=== PATIENT | male | born 1965 | race African-American/Black ===

== ENCOUNTER 2016-11-28 21:48 | Emergency (ER) | payer MEDICAID ==
[~2016-11-28] VITALS: Ht 157.5 cm; Wt 63.0 kg
[2016-11-28] MEDS ORDERED: KETOROLAC 60MG/2ML VIAL IM ONE (23:00)
[2016-11-29 01:49] VITALS: BP 129/85
== END 2016-11-29 01:46 | disposition home or self-care (01) ==
LOC: ER 21:48
DX: S16.1XXA Strain of muscle, fascia and tendon at neck level, initial encounter (principal); S39.012A Strain of muscle, fascia and tendon of lower back, initial encounter; F17.200 Nicotine dependence, unspecified, uncomplicated; V49.59XA Passenger injured in collision with other motor vehicles in traffic accident, initial encounter; Y93.89 Activity, other specified; Y92.89 Other specified places as the place of occurrence of the external cause; Y99.8 Other external cause status
CPT/HCPCS: 71010; 72040; 72100; 72170; 93005; 96372; 99284; J1885

== ENCOUNTER 2023-12-15 05:11 | Emergency (ER) | payer MEDICAID ==
[~2023-12-15] VITALS: Ht 139.7 cm; Wt 36.0 kg
[2023-12-15 05:20] VITALS: TEMP 96.9; O2SAT 97
[2023-12-15] MEDS: SODIUM CHLORIDE 0.9% 1,000 ML IV ONE (06:50)
[2023-12-15] MEDS: KETOROLAC 30MG/ML VIAL IV STA (06:50)
[2023-12-15] MEDS: METOCLOPRAMIDE HCL 10MG/2ML VIAL IV ONE (06:50)
[2023-12-15] MEDS ORDERED: IBUP-2028 PO (07:23)
[2023-12-15 07:47] VITALS: BP 146/82; PULSE 89; RESP 18; O2SAT 95
== END 2023-12-15 07:52 | disposition home or self-care (01) ==
LOC: ER 05:11
DX: R51.9 Headache, unspecified (principal)
CPT/HCPCS: 96361; 96374; 96375; 99284; J1885; J2765; J7030; Z7610

== ENCOUNTER 2024-01-13 09:26 | Emergency (ER) | payer MEDICAID, OTHER ==
[~2024-01-13] VITALS: Ht 139.7 cm; Wt 54.4 kg
[~2024-01-13 09:26] MED LIST: IBUP-2028 PO
[2024-01-13 09:29] VITALS: O2SAT 100
[2024-01-13 10:16] LABS: BASOPHILS % 0.6 % (0.0-2.0); EOSINOPHILS % 2.2 % (0.0-5.0); HEMATOCRIT. 35.4 % (42.0-52.0); HEMOGLOBIN. 12.2 g/dL (14.0-18.0); LYMPHOCYTES % 17.9 % (20.0-50.0); MEAN CORPUSCULAR HEMOGLOBIN 32.9 pg (28.0-32.0); MEAN CORPUSCULAR HGB CONC 34.6 g/dL (31.0-37.0); MEAN CORPUSCULAR VOLUME 95.1 fL (80.0-94.0); MONOCYTES % 9.5 % (2.0-8.0); NEUTROPHILS % 69.8 % (40.0-76.0); PLATELET 727 x1000/uL (130-400); RED BLOOD CELL COUNT 3.72 mill/uL (4.7-6.1); RED CELL DISTRIBUTION WIDTH 12.1 % (11.6-14.6); WHITE BLOOD COUNT 10.6 x1000/uL (4.5-11.0)
[2024-01-13] MEDS: ONDANSETRON HCL 4MG/2ML INJ IV STA (10:24)
[2024-01-13] MEDS: MORPHINE SULFATE 4 MG/ML INJ (FOR IV/IM USE) IV STA (10:24)
[2024-01-13] MEDS: SODIUM CHLORIDE 0.9% 1,000 ML IV ONE (10:24)
[2024-01-13 10:26] LABS: INR 1.1; PROTHROMBIN TIME 12.6 sec (9.6-11.0)
[2024-01-13 10:55] LABS: CHLORIDE 100 mEq/L (98-107); POTASSIUM 3.9 mEq/L (3.5-5.1); SODIUM 134 mEq/L (136-145)
[2024-01-13 10:56] LABS: CARBON DIOXIDE 27 mEq/L (21-32)
[2024-01-13 10:57] LABS: CALCIUM 9.5 mg/dL (8.7-10.4)
[2024-01-13 11:01] LABS: CREATININE 0.7 mg/dL (0.6-1.3); GLUCOSE 75 mg/dL (70-105); UREA NITROGEN BLOOD 11 mg/dL (9-23)
[2024-01-13] MEDS: PIPERACILLIN/TAZO 3.375G/50ML 50 ML IV ONE (12:50)
[2024-01-13] MEDS: SODIUM CHLORIDE 0.9% (SEPSIS BOLUS) IV ONE (12:50)
[2024-01-13] MEDS ORDERED: IOHEXOL-350 100 ML BOTTLE ONE (13:36)
[2024-01-13] MEDS: VANCOMYCIN 1G PREMIX 200 ML IV ONE (13:44)
[2024-01-13] MEDS: CLINDAMYCIN 600 MG in DEXTROSE 5% WATER 50 ML IV ONE (15:12)
[2024-01-13 20:52] VITALS: BP 134/88; PULSE 112; RESP 20; TEMP 36.61404; O2SAT 98
== END 2024-01-13 21:25 | disposition short-term general hospital (02) ==
LOC: ER 09:26 → CANBEDREQ 14:40 → ER 21:25
DX: L02.01 Cutaneous abscess of face (principal); L02.11 Cutaneous abscess of neck; F10.90 Alcohol use, unspecified, uncomplicated; Y90.9 Presence of alcohol in blood, level not specified
CPT/HCPCS: 80048; 83605; 85025; 85610; 87040; 36415; 70487; 70491; 96367; 96361; 96365; 96375; 99285; Q9967; J3490; J2405; J2543; J3370; J2270; J7060; J7030; Z7610 ×2; 96366